=== PATIENT | female | born 1985 | race African-American/Black ===

== ENCOUNTER 2022-01-04 05:47 | Emergency (ER) | payer MEDICAID ==
[~2022-01-04] VITALS: Ht 165.1 cm; Wt 64.0 kg
[2022-01-04] MEDS ORDERED: ACETAMINOPHEN 325MG TABLET PO STA (05:58)
[2022-01-04 06:51] LABS: CHLORIDE 98 mEq/L (98-107)
[2022-01-04 06:56] LABS: HCG SCREEN NEGATIVE
[2022-01-04 07:01] LABS: ETHANOL BLOOD < 10 mg/dL; HEMATOCRIT. 36.9 % (36.0-48.0); HEMOGLOBIN. 12.1 g/dL (12.0-16.0); MEAN CORPUSCULAR HEMOGLOBIN 27.9 pg (28.0-32.0); MEAN CORPUSCULAR VOLUME 84.7 fL (81.0-99.0); MEAN PLATELET VOLUME 8.6 fl (7.4-10.4); PLATELET 398 x1000/uL (130-400); RED BLOOD CELL COUNT 4.36 mill/uL (4.2-5.4); RED CELL DISTRIBUTION WIDTH 14.8 % (11.6-14.6)
[2022-01-04 07:29] LABS: CLARITY URINE CLEAR (CLEAR); COLOR URINE YELLOW (YELLOW); KETONES URINE NEGATIVE (NEGATIVE); LEUKOCYTE ESTERASE URINE 3+ (NEGATIVE); NITRITE URINE NEGATIVE (NEGATIVE); OCCULT BLOOD URINE 1+ (NEGATIVE); PH URINE >=9.0 (4.5-8.0); PROTEIN URINE 1+ (NEGATIVE)
[2022-01-04 07:50] LABS: *AMPHETAMINES SCREEN URINE NEGATIVE (NEGATIVE); *BARBITURATES SCREEN URINE NEGATIVE (NEGATIVE); *BENZODIAZEPINES SCREEN URINE NEGATIVE (NEGATIVE); METHADONE URINE SCREEN NEGATIVE (NEGATIVE); OPIATES URINE SCREEN NEGATIVE (NEGATIVE); PHENCYCLIDINE URINE SCREEN NEGATIVE (NEGATIVE)
[2022-01-04 08:02] LABS: *COCAINE SCREEN URINE PRESUMTIVE POSITIVE (NEGATIVE); CANNABINOID URINE SCREEN PRESUMTIVE POSITIVE (NEGATIVE)
[2022-01-04 08:23] VITALS: BP 107/57
[2022-01-04 08:39] LABS: PLATELET ESTIMATE NORMAL
== END 2022-01-04 08:23 | disposition home or self-care (01) ==
LOC: ER 05:47
DX: R10.9 Unspecified abdominal pain (principal); N30.90 Cystitis, unspecified without hematuria; Z87.898 Personal history of other specified conditions
CPT/HCPCS: 36415; 80053; 80305; 80320; 81003; 81025; 84703; 85025; 99283; G0480

== ENCOUNTER 2022-07-13 19:47 | Emergency (ER) | payer MEDICAID ==
[~2022-07-13] VITALS: Ht 165.1 cm; Wt 62.7 kg
[2022-07-13 19:55] VITALS: BP 112/80
== END 2022-07-13 23:37 | disposition left against medical advice (07) ==
LOC: ER 19:47
DX: Z53.21 Procedure and treatment not carried out due to patient leaving prior to being seen by health care provider (principal)

== ENCOUNTER 2022-11-02 15:49 | Emergency (ER) | payer MEDICAID ==
[~2022-11-02] VITALS: Ht 167.6 cm; Wt 67.0 kg
[2022-11-02] MEDS ORDERED: LEVETIRACETAM 500MG TABLET PO ONE (16:45)
[2022-11-02] MEDS ORDERED: KEPP500 MT (19:59)
[2022-11-02 20:30] VITALS: BP 120/83
== END 2022-11-02 20:55 | disposition home or self-care (01) ==
LOC: ER 15:49
DX: R56.9 Unspecified convulsions (principal); F41.9 Anxiety disorder, unspecified; F32.A Depression, unspecified; F17.210 Nicotine dependence, cigarettes, uncomplicated; F12.90 Cannabis use, unspecified, uncomplicated; Z88.5 Allergy status to narcotic agent; Z88.8 Allergy status to other drugs, medicaments and biological substances
CPT/HCPCS: 99283

== ENCOUNTER 2022-12-05 18:12 | Emergency (ER) | payer MEDICAID, BC ==
[~2022-12-05] VITALS: Ht 172.7 cm; Wt 64.0 kg
[~2022-12-05 18:12] MED LIST: KEPP500 MT
[2022-12-05] MEDS ORDERED: LEVETIRACETAM 500MG PREMIX 100 ML IV ONE (18:45)
[2022-12-05] MEDS ORDERED: SODIUM CHLORIDE 0.9% 1,000 ML IV ONE (18:45)
[2022-12-05 19:38] LABS: BASOPHILS % 0.9 % (0.0-2.0); EOSINOPHILS % 14.3 % (0.0-5.0); HEMATOCRIT. 35.4 % (36.0-48.0); HEMOGLOBIN. 11.5 g/dL (12.0-16.0); LYMPHOCYTES % 22.3 % (20.0-50.0); MEAN CORPUSCULAR HEMOGLOBIN 26.4 pg (28.0-32.0); MEAN CORPUSCULAR VOLUME 81.2 fL (81.0-99.0); MEAN PLATELET VOLUME 8.4 fl (7.4-10.4); MONOCYTES % 10.6 % (2.0-8.0); NEUTROPHILS % 51.9 % (40.0-76.0); PLATELET 390 x1000/uL (130-400); RED BLOOD CELL COUNT 4.36 mill/uL (4.2-5.4); RED CELL DISTRIBUTION WIDTH 14.5 % (11.6-14.6)
[2022-12-05 19:44] LABS: CHLORIDE 106 mEq/L (98-107)
[2022-12-05 19:45] LABS: HCG SCREEN NEGATIVE
[2022-12-05 19:50] VITALS: BP 127/85
[2022-12-05 19:55] LABS: ETHANOL BLOOD < 10 mg/dL
[2022-12-05 19:58] LABS: *AMPHETAMINES SCREEN URINE NEGATIVE (NEGATIVE); *BARBITURATES SCREEN URINE NEGATIVE (NEGATIVE); *BENZODIAZEPINES SCREEN URINE NEGATIVE (NEGATIVE); METHADONE URINE SCREEN NEGATIVE (NEGATIVE); OPIATES URINE SCREEN NEGATIVE (NEGATIVE); PHENCYCLIDINE URINE SCREEN NEGATIVE (NEGATIVE)
[2022-12-05 19:59] LABS: *COCAINE SCREEN URINE PRESUMTIVE POSITIVE (NEGATIVE); CANNABINOID URINE SCREEN PRESUMTIVE POSITIVE (NEGATIVE)
[2022-12-05] MEDS ORDERED: KEPP500 MT (20:35)
== END 2022-12-05 20:50 | disposition home or self-care (01) ==
LOC: ER 18:12
DX: R53.1 Weakness (principal); F14.10 Cocaine abuse, uncomplicated; R51.9 Headache, unspecified; Z76.0 Encounter for issue of repeat prescription; Z88.8 Allergy status to other drugs, medicaments and biological substances; Z98.890 Other specified postprocedural states; Z86.59 Personal history of other mental and behavioral disorders
CPT/HCPCS: 36415; 70450; 71045; 80053; 80305; 80320; 83735; 83880; 84484; 84703; 85025; 93005; 96365; 96366; 99285; J1953; J7030; G0480

== ENCOUNTER 2023-03-01 22:18 | Emergency (ER) | payer BC, MEDICAID ==
[~2023-03-01] VITALS: Ht 162.6 cm; Wt 60.5 kg
[2023-03-01 22:32] VITALS: O2SAT 100
[2023-03-01 23:31] LABS: BASOPHILS % 0.7 % (0.0-2.0); EOSINOPHILS % 14.5 % (0.0-5.0); LYMPHOCYTES % 27.2 % (20.0-50.0); MEAN CORPUSCULAR HEMOGLOBIN 27.1 pg (28.0-32.0); MEAN CORPUSCULAR HGB CONC 32.5 g/dL (31.0-37.0); MEAN CORPUSCULAR VOLUME 83.2 fL (81.0-99.0); MEAN PLATELET VOLUME 8.3 fl (7.4-10.4); MONOCYTES % 11.5 % (2.0-8.0); NEUTROPHILS % 46.1 % (40.0-76.0); PLATELET 414 x1000/uL (130-400); RED BLOOD CELL COUNT 4.81 mill/uL (4.2-5.4); RED CELL DISTRIBUTION WIDTH 15.7 % (11.6-14.6); WHITE BLOOD COUNT 6.1 x1000/uL (4.5-11.0)
[2023-03-01 23:35] LABS: CHLORIDE 106 mEq/L (98-107); INDEX HEMOLYSI 1 (1-3); INDEX ICTERIC 1 (1-4); INDEX LIPEMIC 1 (1-3); POTASSIUM 3.7 mEq/L (3.5-5.1); SODIUM 137 mEq/L (136-145)
[2023-03-01 23:45] LABS: ALANINE AMINOTRANSFERASE 17 IU/L (13-61); ALBUMIN 3.6 g/dL (3.4-5.0); ASPARTATE AMINOTRANSFERASE 10 IU/L (15-37); BILIRUBIN TOTAL 0.4 mg/dL (0.1-1.0); CALCIUM 8.8 mg/dL (8.5-10.1); CARBON DIOXIDE 28 mEq/L (21-32); CREATININE 0.9 mg/dL (0.6-1.3); GLUCOSE 88 mg/dL (70-105); PROTEIN TOTAL 7.5 g/dL (6.0-8.3); UREA NITROGEN BLOOD 12 mg/dL (7-21)
[2023-03-02 00:28] LABS: UCG SCREEN NEGATIVE
[2023-03-02] MEDS ORDERED: LEVETIRACETAM 500MG PREMIX 100 ML IV ONE (01:00)
[2023-03-02] MEDS ORDERED: KEPP500 MT (01:30)
[2023-03-02 03:28] VITALS: BP 108/63; PULSE 67; RESP 17; TEMP 98.2
== END 2023-03-02 03:29 | disposition home or self-care (01) ==
LOC: ER 22:18
DX: R56.9 Unspecified convulsions (principal); F17.200 Nicotine dependence, unspecified, uncomplicated; F14.10 Cocaine abuse, uncomplicated; F12.10 Cannabis abuse, uncomplicated
CPT/HCPCS: 80053; 81025; 85025; 36415; 93005; 99285; 82542; 96365; J1953; Z7610 ×2

== ENCOUNTER 2023-06-25 23:37 | Emergency (ER) | payer MEDICAID ==
[~2023-06-25] VITALS: Ht 162.6 cm; Wt 64.0 kg
[2023-06-25 23:44] VITALS: O2SAT 97
[2023-06-26] MEDS ORDERED: LEVETIRACETAM 1000MG PREMIX 100 ML IV ONE
[2023-06-26 00:27] LABS: BASOPHILS % 0.6 % (0.0-2.0); EOSINOPHILS % 5.8 % (0.0-5.0); HEMATOCRIT. 38.2 % (36.0-48.0); LYMPHOCYTES % 21.8 % (20.0-50.0); MEAN CORPUSCULAR HEMOGLOBIN 26.5 pg (28.0-32.0); MEAN CORPUSCULAR HGB CONC 31.4 g/dL (31.0-37.0); MEAN CORPUSCULAR VOLUME 84.4 fL (81.0-99.0); MONOCYTES % 8.8 % (2.0-8.0); PLATELET 405 x1000/uL (130-400); RED BLOOD CELL COUNT 4.52 mill/uL (4.2-5.4); WHITE BLOOD COUNT 5.8 x1000/uL (4.5-11.0)
[2023-06-26 00:37] LABS: HCG SCREEN NEGATIVE
[2023-06-26 00:39] LABS: ALANINE AMINOTRANSFERASE 12 IU/L (10-49); ALBUMIN 4.1 g/dL (3.2-4.8); ASPARTATE AMINOTRANSFERASE 19 IU/L (<34); BILIRUBIN TOTAL 0.2 mg/dL (0.1-1.0); CALCIUM 9.1 mg/dL (8.7-10.4); CARBON DIOXIDE 25 mEq/L (21-32); CHLORIDE 104 mEq/L (98-107); CREATININE 0.6 mg/dL (0.6-1.0); GLUCOSE 124 mg/dL (70-105); POTASSIUM 3.8 mEq/L (3.5-5.1); PROTEIN TOTAL 6.3 g/dL (6.0-8.3); SODIUM 136 mEq/L (136-145); UREA NITROGEN BLOOD 9 mg/dL (9-23)
[2023-06-26 01:29] LABS: ETHANOL BLOOD < 10 mg/dL (<10)
[2023-06-26] MEDS ORDERED: KEPP500 MT (01:48)
[2023-06-26] MEDS ORDERED: LEVETIRACETAM 1000MG PREMIX 100 ML IV NR (02:45)
[2023-06-26 04:40] VITALS: BP 138/75; PULSE 90; RESP 18; TEMP 98.5
== END 2023-06-26 04:41 | disposition home or self-care (01) ==
LOC: ER 23:37
DX: G40.509 Epileptic seizures related to external causes, not intractable, without status epilepticus (principal); F14.10 Cocaine abuse, uncomplicated; F12.10 Cannabis abuse, uncomplicated; Z91.199 Patient's noncompliance with other medical treatment and regimen due to unspecified reason; Z00.00 Encounter for general adult medical examination without abnormal findings; Z88.6 Allergy status to analgesic agent; Z88.5 Allergy status to narcotic agent; Z88.8 Allergy status to other drugs, medicaments and biological substances
CPT/HCPCS: 82962; 36415; 99284; 80053; 80320; 84703; 85025; 93005; 96365; J1953; G0480

== ENCOUNTER 2023-09-06 14:35 | Emergency (ER) | payer BC, MEDICAID ==
[~2023-09-06] VITALS: Ht 167.6 cm; Wt 70.0 kg
[2023-09-06 14:37] VITALS: O2SAT 97
[2023-09-06] MEDS: SODIUM CHLORIDE 0.9% 1,000 ML IV ONE (15:42)
[2023-09-06 15:47] LABS: BASOPHILS % 0.4 % (0.0-2.0); EOSINOPHILS % 7.4 % (0.0-5.0); HEMATOCRIT. 40.8 % (36.0-48.0); HEMOGLOBIN. 13.2 g/dL (12.0-16.0); LYMPHOCYTES % 12.6 % (20.0-50.0); MEAN CORPUSCULAR HEMOGLOBIN 27.3 pg (28.0-32.0); MEAN CORPUSCULAR HGB CONC 32.4 g/dL (31.0-37.0); MEAN CORPUSCULAR VOLUME 84.3 fL (81.0-99.0); MEAN PLATELET VOLUME 8.5 fl (7.4-10.4); MONOCYTES % 9.7 % (2.0-8.0); NEUTROPHILS % 69.9 % (40.0-76.0); PLATELET 379 x1000/uL (130-400); RED BLOOD CELL COUNT 4.84 mill/uL (4.2-5.4); WHITE BLOOD COUNT 6.2 x1000/uL (4.5-11.0)
[2023-09-06 16:01] LABS: ALANINE AMINOTRANSFERASE 9 IU/L (10-49); ALBUMIN 4.4 g/dL (3.2-4.8); ASPARTATE AMINOTRANSFERASE 14 IU/L (<34); BILIRUBIN TOTAL 0.3 mg/dL (0.1-1.0); CARBON DIOXIDE 25 mEq/L (21-32); CHLORIDE 105 mEq/L (98-107); CREATININE 0.8 mg/dL (0.6-1.0); ETHANOL BLOOD < 10 mg/dL (<10); GLUCOSE 98 mg/dL (70-105); SODIUM 137 mEq/L (136-145); UREA NITROGEN BLOOD 8 mg/dL (9-23)
[2023-09-06] MEDS: LEVETIRACETAM 1000MG PREMIX 1,000 ML IV ONE (16:10)
[2023-09-06] MEDS: LEVETIRACETAM 500MG PREMIX 100 ML IV ONE (16:24)
[2023-09-06] MEDS ORDERED: KEPP500 MT (18:05)
[2023-09-06 18:15] VITALS: BP 127/74; PULSE 79; RESP 18; TEMP 97.7
== END 2023-09-06 18:58 | disposition home or self-care (01) ==
LOC: ER 14:35
DX: R56.9 Unspecified convulsions (principal); R53.1 Weakness; Z76.0 Encounter for issue of repeat prescription
CPT/HCPCS: 80053; 80320; 85025; 36415; 71045; 70450; 12011; 96365; 99285; J1953; J7030; Z7610 ×2; G0480